=== PATIENT | male | born 1970 | race Caucasian/White ===

== ENCOUNTER 2025-06-05 19:14 | Inpatient (IN) | payer MEDICARE, OTHER ==
[~2025-06-05] VITALS: Ht 170.2 cm; Wt 102.1 kg
[2025-06-05 20:39] LABS: APPEARANCE,URINE CLEAR (CLEAR); BLOOD, URINE NEGATIVE Ery/uL (NEGATIVE); LEUKOCYTE ESTERASE ,URINE NEGATIVE (NEGATIVE); NITRITE, URINE NEGATIVE (NEGATIVE); UGLUCOSE NEGATIVE (NEGATIVE)
[2025-06-05 20:45] LABS: AMPHETAMINE, URINE NEGATIVE (NEGATIVE); BARBITURATE, URINE NEGATIVE (NEGATIVE); BENZODIAZEPINE, URINE NEGATIVE (NEGATIVE); CANNABINOID, URINE NEGATIVE (NEGATIVE); COCCAINE, URINE NEGATIVE (NEGATIVE)
[2025-06-05 20:52] LABS: PLATELET COUNT (AUTO) 113 K/uL (150-450); RED BLOOD CELL COUNT(AUTO) 3.81 MIL/uL (4.5-6.0); RED CELL DISTRIBUTION WIDTH 12.7 % (11.5-15.0); WHITE BLOOD COUNT (AUTO) 8.8 K/uL (4.3-11.0)
[2025-06-05 20:54] LABS: OPIATE, URINE POSITIVE (NEGATIVE)
[2025-06-05 21:00] LABS: CALCIUM, SERUM 8.8 mg/dL (8.5-10.1); CREATININE 1.2 mg/dL (0.6-1.3); SODIUM SERUM 134 mmol/L (136-145); UREA NITROGEN, BLOOD 21 mg/dL (7-18)
[2025-06-05 21:06] LABS: ALCOHOL, BLOOD < 3 mg/dL (0-10); ASPARTATE AMINOTRANSFERASE 39 U/L (15-37); TOTAL PROTEIN, SERUM 7.5 g/dL (6.4-8.2)
[2025-06-05] MEDS ORDERED: OLANZAPINE 10 MG VIAL IM ONE (21:12)
[2025-06-05] MEDS: OLANZAPINE 10 MG VIAL IM ONE (21:18)
[2025-06-06] MEDS: IV LR 1000 ML 1,000 ML IV ONE ×3 (01:42→04:30)
[2025-06-06] MEDS ORDERED: HALOPERIDOL LACTATE INJ 5 MG/ML VIAL ONE (01:54)
[2025-06-06] MEDS ORDERED: LORAZEPAM INJ 2 MG/ML VIAL ONE (01:55)
[2025-06-06] MEDS: HALOPERIDOL LACTATE INJ 5 MG/ML VIAL IM ONE (02:01)
[2025-06-06] MEDS: LORAZEPAM INJ 2 MG/ML VIAL IM ONE (02:01)
[2025-06-06] MEDS ORDERED: ONDANSETRON HCL/PF 4 MG/2 ML VIAL IVP PRN (05:00)
[2025-06-06] MEDS ORDERED: LABETALOL 20 MG/4 ML VIAL IV PRN (05:00)
[2025-06-06] MEDS ORDERED: hydrALAZINE HCL IV 20 MG VIAL IV PRN (05:00)
[2025-06-06] MEDS: IV NS 0.9% 1,000 ML IV SCH (05:00)
[2025-06-06] MEDS ORDERED: DEXTROSE 50%-WATER 50 ML DISP.SYRIN IV PRN (05:00)
[2025-06-06] MEDS ORDERED: MORPHINE SULFATE INJ 2 MG/ML DISP.SYRIN IV PRN (05:00)
[2025-06-06 05:30] VITALS: BP 147/96; TEMP 98.2; O2SAT 98
[2025-06-06] MEDS: *INSULIN REGULAR(HUMULIN R)HUM 100 UNIT/ML VIAL SQ PRN (06:23)
[2025-06-06] MEDS: BLOOD SUGAR DIAGNOSTIC 1 EACH STRIP VI SCH (06:36)
[2025-06-06 08:00] VITALS: BP 152/79; TEMP 97.9; O2SAT 98
[2025-06-06] MEDS ORDERED: METF500T PO (08:53)
[2025-06-06] MEDS ORDERED: GLIP5TAB13 PO (08:53)
[2025-06-06] MEDS ORDERED: HALO5TAB8 PO (08:53)
[2025-06-06] MEDS ORDERED: AMLO-212 PO (08:53)
[2025-06-06] MEDS ORDERED: ATOR10TA PO (08:53)
[2025-06-06] MEDS ORDERED: DIVA-78 PO (08:56)
[2025-06-06 09:00] VITALS: BP 129/72; TEMP 98.2; O2SAT 98
[2025-06-06] MEDS: HEPARIN SODIUM, PORCINE 5000 UNITS/1 ML VIAL SQ SCH (09:07)
[2025-06-06] MEDS ORDERED: IV NS 0.9% 1,000 ML IV PRN (09:40)
[2025-06-06] MEDS: IV LR 500 ML IV ONE (10:30)
[2025-06-06] MEDS ORDERED: IV LR 1000 ML 500 ML IV PRN (11:30)
[2025-06-06] MEDS ORDERED: IV LR 1000 ML 1,000 ML IV PRN (11:30)
[2025-06-06] MEDS ORDERED: IV LR 500 ML IV ONE (11:30)
[2025-06-06] MEDS ORDERED: DIVALPROEX SODIUM 500 MG TABLET.DR PO SCH ×2 (11:30→16:30)
[2025-06-06] MEDS: IV LR 1000 ML 1,000 ML IV PRN (11:45)
[2025-06-06] MEDS: FOLIC ACID 1 MG TABLET PO SCH (12:35)
[2025-06-06] MEDS: INSULIN REGULAR, HUMAN 100 UNIT/ML 3 ML VIAL SQ PRN (12:37)
[2025-06-06] MEDS: Thiamine 100 MG in IV D5W 50 ML IV SCH (13:27)
[2025-06-06] MEDS: ACETAMINOPHEN 325 MG TABLET PO PRN (16:55)
[2025-06-06] MEDS: OLANZAPINE 2.5 MG TABLET PO SCH (16:58)
[2025-06-06] MEDS: DIVALPROEX SODIUM 250 MG TABLET.DR PO SCH (17:09)
[2025-06-06] MEDS ORDERED: HALOPERIDOL 5 MG TABLET PO SCH (18:00)
[2025-06-06] MEDS: IV LR 1000 ML 1,000 ML IV SCH (20:57)
[2025-06-06] MEDS: ATORVASTATIN 10 MG TABLET PO SCH (21:01)
[2025-06-06 21:35] VITALS: BP 138/77; TEMP 98.1; O2SAT 97
[2025-06-07] VITALS: BP 147/87; TEMP 98.1; O2SAT 96
[2025-06-07 06:01] LABS: PLATELET COUNT (AUTO) 98 K/uL (150-450); RED BLOOD CELL COUNT(AUTO) 3.25 MIL/uL (4.5-6.0); RED CELL DISTRIBUTION WIDTH 12.5 % (11.5-15.0); WHITE BLOOD COUNT (AUTO) 7.3 K/uL (4.3-11.0)
[2025-06-07 06:17] LABS: ASPARTATE AMINOTRANSFERASE 27.0 U/L (15-37); CALCIUM, SERUM 8.2 mg/dL (8.5-10.1); CREATININE 1.5 mg/dL (0.6-1.3); PHOSPHORUS 3.3 mg/dL (2.5-4.9); SODIUM SERUM 139.0 mmol/L (136-145); TOTAL PROTEIN, SERUM 6.7 g/dL (6.4-8.2); UREA NITROGEN, BLOOD 21.0 mg/dL (7-18)
[2025-06-07] MEDS ORDERED: IV LR 1000 ML 1,000 ML IV PRN (07:56)
[2025-06-07 08:00] VITALS: BP 162/97; TEMP 98.7; O2SAT 98
[2025-06-07] MEDS: THIAMINE HCL 100 MG TABLET PO SCH (08:27)
[2025-06-07] MEDS: AMLODIPINE BESYLATE 5 MG TABLET PO SCH (08:28)
[2025-06-07 12:00] VITALS: BP 99/77; TEMP 97.7; O2SAT 98
[2025-06-07 12:06] LABS: EOSINOPHILS % (MANUAL) 5 % (0-4); LYMPHOCYTES % (MANUAL) 23 % (16-48); MONOCYTES % (MANUAL) 5 % (0-11.0); NEUTROPHILS % (MANUAL) 67 (42-76); PLATELET ESTIMATE DECREASED
== END 2025-06-07 15:00 | DRG 309 ==
LOC: ER 19:15 → TELE 06-06 04:49
PROVIDERS: ATTEND Nurse Practitioner Acute Care
DX: R00.0 Tachycardia, unspecified (principal); R45.851 Suicidal ideations; F25.0 Schizoaffective disorder, bipolar type; Z89.611 Acquired absence of right leg above knee; I10 Essential (primary) hypertension; Z68.35 Body mass index [BMI] 35.0-35.9, adult; E11.9 Type 2 diabetes mellitus without complications; F29 Unspecified psychosis not due to a substance or known physiological condition; Z20.822 Contact with and (suspected) exposure to COVID-19; E66.9 Obesity, unspecified; E78.5 Hyperlipidemia, unspecified; F17.200 Nicotine dependence, unspecified, uncomplicated; Z98.890 Other specified postprocedural states; F39 Unspecified mood [affective] disorder; Z79.84 Long term (current) use of oral hypoglycemic drugs; Z79.899 Other long term (current) drug therapy
CPT/HCPCS: 36415; 71045-TC; 76770-TC; 80048-TC; 80053-TC; 80076-TC; 82962-TC; 83605-TC; 83735-TC; 84100-TC; 84484-TC; 85025-TC; 85027-TC; 87081-TC; 93307-TC; 98960; A4223; G0378; G0480; J1200; J1630; J1644; J1815; J2060; J3411; J3490; J7030; J7060; J7120